=== PATIENT | male | born 1970 | race Caucasian/White ===

== ENCOUNTER → 2021-12-16 10:08 | Outpatient (CLI) | payer OTHER, SELFPAY | PROVIDERS: PCP Nurse Practitioner Family; Visit Provider Surgery | DX: Z01.812 Encounter for preprocedural laboratory examination (principal); Z11.52 Encounter for screening for COVID-19; Z13.810 Encounter for screening for upper gastrointestinal disorder; Z12.11 Encounter for screening for malignant neoplasm of colon | CPT/HCPCS: C9803; U0003; U0005 ==

== ENCOUNTER 2021-12-18 09:22 | Day surgery (SDC) | payer OTHER, SELFPAY ==
[2021-12-16 12:47] VITALS: BMI 44.3
[2021-12-18 09:44] VITALS: BP 114/66; PULSE 66; RESP 18; TEMP 36.8; O2SAT 97
--- NOTE | 2021-12-18 09:55 | HMH.GSHP ---
HPI HPI: Patient is a 51-year-old male from [place] with BMI of 50 who is referred by Abi Cotto for colonoscopy. Patient has apparently had anemia on routine blood work. He has never had a prior colonoscopy. He has not noticed any hematochezia type symptoms or melena. He is unsure if his maternal grandfather had colon cancer. Patient does state that he has some chronic headaches and he has taken a lot of BC powders. He had previously been taking 3 daily but now he is still taking 1 daily. He is on Xarelto. [facility] History I have reviewed the patient's past medical history: Yes Medical History: Reports:: Atrial Fibrillation, Cancer, Diabetes Mellitus Type 2, Hyperlipidemia, Hypertension Denies:: Internal Pacemaker, MRSA, Seizures *Have you ever received a pneumonia vaccine?: No *Have you received a flu vaccine this season?: No Other Medical History: Reports: Arthritis Other Surgeries: Yes: Other. No: Pacemaker Amputation: No Fractures: Yes (R leg) - *Social History Last grade of school completed: High school graduate Smoking Status: Former smoker Alcohol Intake: never *Occupational Status:: retired Housing: house Household Members: spouse, children *Travel in the last 8 weeks: None Family Hx:: Cancer, Coronary Artery Disease, Hypertension Review of Systems - Review of Systems Review of systems:: pertinent systems reviewed and negative unless documented below Meds Home Medications Medication Instructions Recorded Confirmed Type cetirizine 10 mg capsule 10 mg PO DAILY 01/31/19 12/16/21 History metoprolol tartrate 25 mg tablet 25 mg PO BID 01/31/19 12/16/21 History niacin 750 mg tablet,extended 1,500 mg PO QHS 01/31/19 12/16/21 History release rivaroxaban 20 mg tablet 20 mg PO DAILY 01/31/19 12/16/21 History calcium polycarbophil 625 mg tablet 1,250 mg PO DAILY tab 10/29/21 12/16/21 History diphenhydramine HCl 25 mg capsule 25 mg PO .prn cap 10/29/21 12/16/21 History esomeprazole magnesium 40 mg 40 mg PO DAILY 10/29/21 12/16/21 History capsule,delayed release fenofibrate 54 mg tablet 54 mg PO DAILY tab 10/29/21 12/16/21 History insulin glargine 100 unit/mL 60 unit SQ BID ml 10/29/21 12/16/21 History subcutaneous solution lisinopril 5 mg tablet 5 mg PO DAILY tab 10/29/21 12/16/21 History sotalol 80 mg tablet 80 mg PO BID 10/29/21 12/16/21 History Empagliflozin [Jardiance 10mg 10 mg PO DAILY 12/16/21 12/16/21 History Tablet] glipiZIDE [Glipizide] 20 mg PO BID 12/16/21 12/16/21 History Allergies Allergy/AdvReac Type Severity Reaction Status Date / Time No Known Allergies Allergy Unverified 10/29/21 09:13 Exam Vital signs and Labs for Last 24 Hours: Temp Pulse Resp BP Pulse Ox 98.2 F 66 18 114/66 97 12/18/21 09:44 12/18/21 09:44 12/18/21 09:44 12/18/21 09:44 12/18/21 09:44 I & O for Last 24 hours: Intake & Output 12/15/21 12/16/21 12/17/21 12/18/21 11:59 11:59 11:59 11:59 Weight 300 lb - Constitutional no acute distress - *Routine HEENT Exam Head: Present: normocephalic Eye: Present: EOMI, PERRL ENT: Present: mucous membranes moist - *Routine Neck Exam Present: supple. Absent: lymphadenopathy - *Routine Respiratory Exam Present: CTA bilaterally - *Routine Cardiovascular Exam Present: Normal S1, Normal S2 - *Routine Abdominal Exam Present: soft, normoactive bowel sounds. Absent: tenderness - *Routine Rectal Exam Rectal:: deferred - *Routine Genitalia Exam Genitalia:: deferred - *Routine Extremities Exam Absent: cyanosis, clubbing, edema - *Routine Skin Exam Present: warm. Absent: rash - *Routine Neurological Exam Present: alert, oriented X3 Assessment and Plan - Assessment and plan all Dx Assessment and Plan for all problems:: EGD and colonoscopy for anemia with history of heavy NSAID use
--- NOTE | 2021-12-18 10:44 | HMH.ANESCL ---
[facility] Anesthesia Checklist - Structural Data Admitted From: Home Planned Operative Procedure/s: colonoscopy Consent for Planned Operative Procedure(s) Verified: Yes - Airway Assessment C-Spine Mobility Assessed: Yes TMJ Mobility Assessed: Yes Dentition: Poor Dentition - Neurological Assessment Level of Consciousness: Awake, Alert, Appropriate - Anesthesia Plan Anesthesia Risk discussed: Yes Anesthesia Plan: Verified ASA Class: III Anesthesia Type: MAC [facility] History I have reviewed the patient's past medical history: Yes Medical History: Reports:: Atrial Fibrillation, Cancer, Diabetes Mellitus Type 2, Hyperlipidemia, Hypertension Denies:: Internal Pacemaker, MRSA, Seizures *Have you ever received a pneumonia vaccine?: No *Have you received a flu vaccine this season?: No Other Medical History: Reports: Arthritis Anesthesia experience/problems:: none Other Surgeries: Yes: Other. No: Pacemaker Amputation: No Fractures: Yes (R leg) - *Social History Last grade of school completed: High school graduate Smoking Status: Former smoker Alcohol Intake: never Substance Use Type: denies use *Occupational Status:: retired Housing: house Household Members: spouse, children *Travel in the last 8 weeks: None Family Hx:: Cancer, Coronary Artery Disease, Hypertension
[2021-12-18 10:52] VITALS: O2SAT 97
--- NOTE | 2021-12-18 11:06 | P.PCN_ITS ---
- Procedure: Date: 12/18/21 Patient Date of :: 1970 Procedure Performed:: Esophagogastroduodenoscopy with biopsies Indications:: Patient is a 51-year-old male from [place] with BMI of 50 who is referred by Abi Cotto for colonoscopy. Patient has apparently had anemia on routine blood work. He has never had a prior colonoscopy. He has not noticed any hematochezia type symptoms or melena. He is unsure if his maternal grandfather had colon cancer. Patient does state that he has some chronic headaches and he has taken a lot of BC powders. He had previously been taking 3 daily but now he is still taking 1 daily. He is on Xarelto. Performing Provider:: Teofilo Soria MD Referring Provider:: Abi Cotto Sedation:: MAC sedation Procedure:: Patient was taken to endoscopy procedure room. He was positioned in lateral decubitus position. Adequate intravenous sedation was achieved with anesthesia titration of propofol. Olympus endoscope was inserted via the oropharynx. Esophagus was cannulated. Gastroesophageal junction was encountered at approximately 50 cm from the incisors. The stomach was cannulated and insufflated. Retroflexion revealed no obvious hiatal hernia. He did have multiple probable fundic gland polyps. There were some areas of focal gastritis in the antrum. Gastric antral mucosal biopsies obtained for CLOtest for H. pylori. Pylorus was traversed. Duodenal bulb and second and third portion of the duodenum appeared unremarkable. Endoscope was once again withdrawn into the stomach. Gastric antral mucosal biopsies obtained in the prepyloric location. Biopsy was obtained of one of the presumed fundic gland polyps. Endoscope was withdrawn into the distal esophagus and couple biopsies were obtained at the gastroesophageal junction to rule out Layton's. Stomach was desufflated and the endoscope was withdrawn. Findings:: Gastroesophageal junction at 50 cm Presumed gastric fundic gland polyps Several areas of prepyloric antral gastritis, biopsied Recommendations:: Plan to proceed with colonoscopy. Complications:: None Estimated blood obtained (mL): 2
[2021-12-18 11:55] VITALS: BP 111/60; PULSE 66; RESP 18; TEMP 36.9; O2SAT 95
--- NOTE | 2021-12-18 11:55 | HMH.SCOPE ---
- Procedure: Date: 12/18/21 Patient Date of :: 1970 Procedure Performed:: Total colonoscopy to ileocecal valve with polypectomy Indications:: Patient is a 51-year-old male from [place] who is referred by Abi Cotto for colonoscopy. Patient has apparently had anemia on routine blood work. He has never had a prior colonoscopy. He has not noticed any hematochezia type symptoms or melena. He is unsure if his maternal grandfather had colon cancer. Patient does state that he has some chronic headaches and he has taken a lot of BC powders. He had previously been taking 3 daily but now he is still taking 1 daily. He is on Xarelto. Line was made to proceed with EGD and colonoscopy. He underwent upper endoscopy which did reveal some gastric fundic gland polyps and minor prepyloric gastritis. Plan was made to proceed with colonoscopy. Performing Provider:: Teofilo Soria MD Referring Provider:: Abi Cotto Sedation:: MAC sedation Procedure:: Patient was taken to endoscopy procedure room. He was positioned in lateral decubitus position. Adequate intravenous sedation was achieved with anesthesia titration of propofol. Variable stiffness Olympus colonoscope was inserted via the anus. It was advanced ultimately to the cecum. Upon advancement in the transverse colon there was an irregularity along a mucosal fold/ridge. This was felt to be possibly consistent with a subtle ridge polyp. It was removed in a piecemeal fashion using cold snare and sent as transverse colon polyp. Colonoscope was then advanced to the cecum. Ileocecal valve and appendiceal orifice were identified. Colonoscope was advanced a short distance into the ileocecal valve which appeared grossly normal. Colonoscope was withdrawn through the colon with careful surveillance. In the descending colon there was a small subtle polyp removed with biopsy forceps. There were some subtle sigmoid polyps x3 removed with cold snare. In the rectosigmoid region there were hyperplastic appearing polyps tumor removed with cold snare and 2 with biopsy forceps. Retroflexion within the rectum revealed no evidence of any definite pathologic internal hemorrhoids. Colonoscope was withdrawn. Findings:: Polyps as noted above. Most notable polyp was possible ridge polyp in the transverse colon which was a subtle mucosal irregularity. Recommendations:: Follow-up colonoscopy pending pathology on polyps. Any of these may be hyperplastic. If he continues to show anemia and shows signs of GI blood loss with Hemoccult positive stool small bowel evaluation may be warranted. Complications:: None immediately apparent Estimated blood obtained (mL): 4
[2021-12-18 12:05] VITALS: BP 103/53; PULSE 61; RESP 18; O2SAT 100
[2021-12-18 12:25] VITALS: BP 121/75; PULSE 60; RESP 16; TEMP 36.9; O2SAT 99
[2022-06-24 10:58] LABS: POC Glucose,Bedside 90 (70-110)
== END 2021-12-18 12:25 | disposition home or self-care (01) ==
LOC: OUTP 09:23
PROVIDERS: PCP Nurse Practitioner Family; Visit Provider Surgery
PROC: 0DJ08ZZ Inspection of Upper Intestinal Tract, Via Natural or Artificial Opening Endoscopic (ICD-10-PCS; CPT 43235; principal; 2021-12-18 10:30)
DX: K31.7 Polyp of stomach and duodenum (principal); K29.70 Gastritis, unspecified, without bleeding; K63.5 Polyp of colon; D64.9 Anemia, unspecified; Z79.01 Long term (current) use of anticoagulants; I48.91 Unspecified atrial fibrillation; E11.9 Type 2 diabetes mellitus without complications; E78.5 Hyperlipidemia, unspecified; I10 Essential (primary) hypertension; Z87.891 Personal history of nicotine dependence; Z85.9 Personal history of malignant neoplasm, unspecified; Z80.9 Family history of malignant neoplasm, unspecified; Z82.49 Family history of ischemic heart disease and other diseases of the circulatory system
CPT/HCPCS: 43239; 45380; 45385; 82962; 87339; 88305

== ENCOUNTER 2023-09-17 10:54 | Emergency (ER) | payer OTHER, SELFPAY ==
[2023-09-17 13:10] VITALS: BP 141/96; PULSE 109; RESP 19; TEMP 37.8; O2SAT 98; BMI 46.7
[2023-09-17 13:31] LABS: UTC Influenza A Antigen Negative (Negative); UTC Influenza B Antigen Positive (Negative)
--- NOTE | 2023-09-17 13:39 | EXP.UTC ---
Discharge Plan Disposition Patient Disposition: Home, Self-Care Condition: Good Prescriptions Prescriptions: New oseltamivir [Tamiflu] 75 mg capsule 75 mg PO Q12H 5 Days Qty: 10 0RF methylprednisolone [Medrol (Osman)] 4 mg tablets,dose pack See Rx Instructions .ROUTE .COMPLEX 6 Days Qty: 21 0RF Rx Instructions: 4 mg orally ;Medrol dose taper osman No Action niacin 750 mg tablet extended release 1,500 mg PO QHS metoprolol tartrate 25 mg tablet 25 mg PO BID All Day Allergy (cetirizine) 10 mg capsule 10 mg PO DAILY Xarelto 20 mg tablet 20 mg PO DAILY fenofibrate 54 mg tablet 54 mg PO DAILY Lantus U-100 Insulin 100 unit/mL solution 60 unit SQ BID lisinopril 5 mg tablet 5 mg PO DAILY esomeprazole magnesium 40 mg capsule,delayed release(DR/EC) 40 mg PO DAILY calcium polycarbophil [FiberCon] 625 mg tablet 1,250 mg PO DAILY sotalol 80 mg tablet 80 mg PO BID diphenhydramine HCl [Allergy (diphenhydramine)] 25 mg capsule 25 mg PO .prn glipizide 10 MG tablet 20 mg PO BID empagliflozin 10 MG tablet 10 mg PO DAILY Referrals Follow up/Referrals: Sourav Nicholson MD [Primary Care Provider] - See instructions Activity Restrictions/Add. Instructions Additional Instructions/Restrictions: Follow up with PCP next week. Clinical Impressions Clinical Impression: Influenza A Instructions Patient Instructions: DI for Influenza -- Adult, Fighting the Flu With Antiviral Drugs Discharge ED Provider: Brooklynn Mathias [facility] HPI General Stated complaint: congestion, st, cough, nelson Mode of Arrival: Ambulatory Source of Information: Patient Limitations: No Limitations Time Seen by Provider: 09/17/23 13:39 Description of Symptoms (Recalled from Triage Doc. by RN): PATIENT C/O PRODUCTIVE COUGH, SORE THROAT, BODY ACHES AND CHILLS THAT STARTED LAST NIGHT HEENT Symptoms (Recalled from RN notes): Yes Resp Symptoms (Recalled from RN notes): Yes Skin Symptoms (Recalled from RN notes): No MS Symptoms (Recalled from RN notes): No Functional Status (Recalled from RN notes): WNL History of Present Illness Provider Complaint: Pt reports that symptoms started last night. He reports a strong dry cough, runny nose, headache, body aches, and chills. He has taken Tylenol for his symptoms. Related Data Home Medications Medication Instructions Recorded Confirmed cetirizine 10 mg capsule (All Day 10 mg PO DAILY . 01/31/19 01/07/22 Allergy (cetirizine)) metoprolol tartrate 25 mg tablet 25 mg PO BID bp 01/31/19 01/07/22 niacin 750 mg tablet,extended 1,500 mg PO QHS sleep 01/31/19 01/07/22 release rivaroxaban 20 mg tablet (Xarelto) 20 mg PO DAILY Blood thinner 01/31/19 01/07/22 calcium polycarbophil 625 mg 1,250 mg PO DAILY . 10/29/21 01/07/22 tablet (FiberCon) diphenhydramine HCl 25 mg capsule 25 mg PO .prn . 10/29/21 01/07/22 (Allergy (diphenhydramine)) esomeprazole magnesium 40 mg 40 mg PO DAILY GERD 10/29/21 01/07/22 capsule,delayed release fenofibrate 54 mg tablet 54 mg PO DAILY . 10/29/21 01/07/22 insulin glargine 100 unit/mL 60 unit SQ BID Diabetes 10/29/21 01/07/22 subcutaneous solution (Lantus U-100 Insulin) lisinopril 5 mg tablet 5 mg PO DAILY bp 10/29/21 01/07/22 sotalol 80 mg tablet 80 mg PO BID HR 10/29/21 01/07/22 empagliflozin 10 mg tablet 10 mg PO DAILY Diabetes 12/16/21 01/07/22 glipizide 10 mg tablet 20 mg PO BID Diabetes 12/16/21 01/07/22 Previous Rx's Medication Instructions Recorded methylprednisolone 4 mg tablets in See Rx Instructions .Route 09/17/23 a dose pack (Medrol (Osman)) .COMPLEX 6 days #21 tabs oseltamivir 75 mg capsule (Tamiflu) 75 mg PO Q12H 5 days #10 caps 09/17/23 Allergies Allergy/AdvReac Type Severity Reaction Status Date / Time No Known Allergies Allergy Unverified 01/07/22 09:16 Worker's Comp Is this a Worker's Comp case?: No [facility] Disclaimer: The information c
[2023-09-17 13:50] VITALS: BP 141/96; PULSE 109; RESP 19; TEMP 37.8; O2SAT 98
== END 2023-09-17 13:54 | disposition home or self-care (01) ==
PROVIDERS: Emergency Provider Nurse Practitioner Family; PCP Emergency Medicine
DX: J10.1 Influenza due to other identified influenza virus with other respiratory manifestations (principal); R51.9 Headache, unspecified; R50.9 Fever, unspecified; R07.0 Pain in throat; R05.9 Cough, unspecified; R09.81 Nasal congestion; R53.81 Other malaise; M79.18 Myalgia, other site; E11.9 Type 2 diabetes mellitus without complications; E78.5 Hyperlipidemia, unspecified; I10 Essential (primary) hypertension; I48.0 Paroxysmal atrial fibrillation; Z79.01 Long term (current) use of anticoagulants; Z79.4 Long term (current) use of insulin; Z79.84 Long term (current) use of oral hypoglycemic drugs
CPT/HCPCS: 87804; 99204; 99212; G0463